=== PATIENT | male | born 1985 | race Two or more races ===

== ENCOUNTER 2022-03-04 22:08 | Inpatient (IN) | payer MEDICAID ==
[~2022-03-04] VITALS: Ht 177.8 cm; Wt 83.9 kg
--- NOTE | 2022-03-04 23:15 | NUR ---
ECONOMICS ANALYST NOTE PATIENT ARRIVED FROM [facility] ER, PT ALERT/ORIENTED X 4, PT ABLE TO MAKE NEEDS KNOWN. PT STABLE ON RA, NO S/S OF DISTRESS OR SOB NOTED, BREATHING EVEN AND UNLABORED. PATIENT DENIES ABDOMINAL PAIN BUT REPORTS HEADACHE. BP ELEVATED 169/201, HR: 75, NOTIFIED CLAY PRESS OPERATOR MD LETICIA MCCORMACK WHO SAW PATIENT AT BEDSIDE. PATIENT REPORTS HX OF HTN BUT STATES HE HASN'T TAKEN BP MEDS AND NEEDS A NEW PRESCRIPTION, PT REPORTS HX OF HOSPITALIZATION THIS YEAR WITH SPLEEN REMOVAL. PATIENT REPORTS HAVING ABOUT 2 DRINKS A WEEK, AND SMOKING MARIJUANA AT NIGHT FOR SLEEP. PATIENT AMBULATORY AND STEADY. IV ACCESS ON LAC #20G INTACT AND SALINE LOCKED. ORIENTED PATIENT TO ROOM AND HOW TO USE CALL LIGHT. SAFETY MEASURES IN PLACE: CALL LIGHT WITHIN REACH, SIDE RAILS UP X 2, BED LOCKED IN LOWEST POSITION. WILL CONTINUE TO MONITOR PATIENT
[2022-03-04] MEDS: hydrALAZINE HCL 25 MG TABLET PO SCH (23:21)
[2022-03-05] MEDS ORDERED: IV NS 0.9% 1,000 ML IV PRN (00:30)
[2022-03-05] MEDS ORDERED: ACETAMINOPHEN 325 MG TABLET PO PRN (00:30)
[2022-03-05] MEDS ORDERED: ONDANSETRON HCL/PF 4 MG/2 ML VIAL IVP PRN (00:30)
[2022-03-05] MEDS: ENOXAPARIN SODIUM 40 MG/0.4 ML DISP.SYRIN SQ SCH ×2 (00:31→21:00)
[2022-03-05] MEDS: MORPHINE SULFATE INJ 2 MG/ML DISP.SYRIN IV PRN ×4 (01:39→23:29)
[2022-03-05 04:00] VITALS: BP 153/106
[2022-03-05 05:00] VITALS: BP 158/102
[2022-03-05] MEDS: hydrALAZINE HCL 25 MG TABLET PO SCH (05:00)
--- NOTE | 2022-03-05 05:51 | NUR ---
VIDEO OPERATOR NOTE PATIENT STILL NOTED WITH HIGH BP 158/102, HR: 70. PATIENT HAS SCHEDULED HYDRALAZINE 25 MG PO BUT PATIENT IS NOW NPO. CONTACTED SUPERVISOR FITTING MD WITH ORDER FOR ENALAPRIL 1.25 MG IVP PRN FOR SBP > 150. ORDER CONFIRMED
[2022-03-05 05:55] LABS: BASOPHILS # (AUTO) 0.1 K/uL (0.0-0.2); BASOPHILS % (AUTO) 0.5 % (0.0-2.0); EOSINOPHILS % (AUTO) 0.6 % (0.0-6.0); HEMATOCRIT 37 % (39-51); HEMOGLOBIN 12.4 g/dL (13.5-17.5); LYMPHOCYTES # (AUTO) 0.9 K/uL (0.8-4.8); LYMPHOCYTES % (AUTO) 6.7 % (20.0-44.0); MEAN CORPUSCULAR HGB CONC 34 g/dl (31.0-36.0); MEAN CORPUSCULAR VOLUME 94 fL (80-96); MONOCYTES # (AUTO) 1.3 K/uL (0.1-1.30); MONOCYTES % (AUTO) 9.6 % (2.0-12.0); NEUTROPHILS # (AUTO) 11.5 K/uL (1.8-8.9); NEUTROPHILS % (AUTO) 82.6 % (43.0-81.0); PLATELET COUNT (AUTO) 506 K/uL (150-450); WHITE BLOOD COUNT (AUTO) 13.9 K/uL (4.3-11.0)
[2022-03-05] MEDS: ENALAPRILAT INJ (1.25 MG/ML) 1.25 MG/ML VIAL IV PRN (06:21)
[2022-03-05 07:12] LABS: BILIRUBIN,DIRECT 0.3 mg/dL (0.0-0.2); BILIRUBIN,TOTAL 0.6 mg/dL (0.2-1.0); CALCIUM, SERUM 8.8 mg/dL (8.5-10.1); CREATININE 1.1 mg/dL (0.6-1.3); MAGNESIUM 1.8 mg/dL (1.8-2.4); PHOSPHORUS 3.1 mg/dL (2.5-4.9); POTASSIUM 3.7 mmol/L (3.5-5.1); TOTAL PROTEIN, SERUM 7.2 g/dL (6.4-8.2)
--- NOTE | 2022-03-05 07:24 | NUR ---
CLINICAL QUALITY MANAGER CLOSING NOTE PATIENT SLEEPING IN BED, EASILY AWAKENED, PT ALERT/ORIENTED X 4, PT ABLE TO MAKE NEEDS KNOWN. PATIENT STABLE ON RA, NO S/S OF DISTRESS OR SOB NOTED, BREATHING EVEN AND UNLABORED. PT ON EXTERNAL GRAVE DIGGER READING SINUS RHYTHM, HR: 76. IV ACCESS ON LAC #20G INTACT AND INFUSING NS @ 75 ML/HR. MEDICATIONS GIVEN ORDERED, PT NEEDS MET THROUGHOUT SHIFT. PATIENT KEPT NPO SINCE MIDNIGHT. SAFETY MEASURES IN PLACE: CALL LIGHT WITHIN REACH, SIDE RAILS UP X 2, BED LOCKED IN LOWEST POSITION. ENDORSED TO DAYSHIFT NURSE FOR CONTINUITY OF CARE
--- NOTE | 2022-03-05 07:30 | NUR ---
RN Receiving Report. Patient AOx4, able to express his own concerns. States he has abdominal pain, will assess and administer medication as prescribed. Introduced myself to patient and discussed plan of care, pt verbalized understanding. All safety precautions taken, call light and table within reach, bed at lowest position.
[2022-03-05 07:45] LABS: ALBUMIN 2.2 g/dL (3.4-5.0)
[2022-03-05 08:00] VITALS: BP 157/106
[2022-03-05] MEDS ORDERED: AMLODIPINE (08:25)
[2022-03-05] MEDS ORDERED: [UNRECOGNIZED DRUG - OTHER] (08:25)
[2022-03-05] MEDS: PANTOPRAZOLE 40 MG VIAL IV SCH (08:54)
[2022-03-05] MEDS: METRONIDAZOLE 500MG/ NS 100ML 500 MG in PREMIX 1 EA IV SCH ×3 (08:54→16:24)
[2022-03-05] MEDS ORDERED: AMLODIPINE BESYLATE 5 MG TABLET PO SCH (11:00)
[2022-03-05] MEDS: LEVOFLOXACIN 750 MG /D5W 150ML 750 MG in PREMIX 1 EA IV SCH (11:15)
[2022-03-05 12:00] VITALS: BP 149/98
[2022-03-05 17:53] VITALS: BP 144/99
[2022-03-05] MEDS ORDERED: hydrALAZINE HCL IV 20 MG VIAL IV PRN ×3 (18:30→21:00)
--- NOTE | 2022-03-05 18:31 | NUR ---
RN Closing Note Patient AOx4, able to express his own concerns. State he is missing work siddiqi to current situation. Administered IV medication as ordered, IV with no signs of infiltration. Administered medications as prescribed, provided care as needed. All safety precautions taken, call light and table within reach. Will endorse to night nurse for continuity of care.
--- NOTE | 2022-03-05 19:25 | NUR ---
NURSING UNIT CLERK OPENING NOTE RECEIVED PATIENT IN BED; AWAKE, ALERT AND ORIENTED X 4. BREATHING EVEN AND NONLABORED. ON ROOM AIR; TOLERATING WELL. NOT IN ANY FORM OF RESPIRATORY DISTRESS. ON TELEMETRY MONITORING: SINUS RHYTHM HR-88 BPM. WITH IV ACCESS ON LEFT HAND 20g: PATENT AND INTACT INFUSING WITH NS 1L RUNNING @ 75 ML/HR; FLUSHES WELL. ABLE TO MAKE NEEDS KNOWN. SAFETY MEASURES IMPLEMENTED: CALL LIGHT AND TABLE WITHIN REACH, SIDE RAILS UP X 2, BED IN LOWEST LOCKED POSITION. WILL CONTINUE PLAN OF CARE.
[2022-03-05 20:00] VITALS: BP 146/97
--- NOTE | 2022-03-05 23:29 | NUR ---
RN NOTE PATIENT C/O ABDOMINAL PAIN 8/10 PAIN SCALE. PRN MORPHINE 2 MG GIVEN IVP ORDERED. WILL CONTINUE TO MONITOR AND REASSESS PT
[2022-03-06] VITALS: BP 148/100
[2022-03-06 04:00] VITALS: BP_SYST 142; BP_SYST 148; BP_DIAS 99
[2022-03-06] MEDS: MORPHINE SULFATE INJ 2 MG/ML DISP.SYRIN IV PRN ×2 (06:15→10:58)
--- NOTE | 2022-03-06 06:15 | NUR ---
RN NOTE PATIENT C/O ABDOMINAL PAIN 8/10 PAIN SCALE. PRN MORPHINE 2 MG GIVEN IVP ORDERED. WILL CONTINUE TO MONITOR AND REASSESS PT.
--- NOTE | 2022-03-06 06:45 | NUR ---
FRONT WINDOW CASHIER CLOSING NOTE PATIENT IN BED; AWAKE, A/O X 4. STABLE ON ROOM AIR. BREATHING EQUAL AND UNLABORED. IN NO ACUTE DISTRESS. ON TELE MONITORING: SINUS RHYTHM HR-77 BPM. WITH IV ACCESS ON LEFT HAND 20g: PATENT AND INTACT INFUSING WITH NS 1L RUNNING @ 75 ML/HR; FLUSHES WELL. ALL NEEDS ATTENDED. ALL DUE MEDS GIVEN ORDERED. SAFETY MEASURES MAINTAINED: CALL LIGHT AND TABLE WITHIN REACH, SIDE RAILS UP X 2, BED IN LOWEST LOCKED POSITION. ENDORSED TO MORNING SHIFT FOR ANGEL.
[2022-03-06 07:00] VITALS: BP 154/95
[2022-03-06 07:19] LABS: BILIRUBIN,DIRECT 0.2 mg/dL (0.0-0.2); BILIRUBIN,TOTAL 0.4 mg/dL (0.2-1.0); PHOSPHORUS 3.8 mg/dL (2.5-4.9); TOTAL PROTEIN, SERUM 7.8 g/dL (6.4-8.2)
[2022-03-06 07:22] LABS: CALCIUM, SERUM 9.5 mg/dL (8.5-10.1); PHOSPHORUS 3.9 mg/dL (2.5-4.9); POTASSIUM 3.8 mmol/L (3.5-5.1)
--- NOTE | 2022-03-06 07:25 | NUR ---
STUDIO ASSOCIATE OPENING NOTE RECEIVED PATIENT IN BED; AWAKE, ALERT AND ORIENTED X 4. NO SOB OR DISTRESS NOTED . ON ROOM AIR; TOLERATING WELL. NO C/O OF PAIN AND DISCOMFORT . ON TELEMETRY MONITORING: SINUS RHYTHM HR-88 BPM. WITH IV ACCESS ON LEFT HAND 20g: PATENT AND INTACT INFUSING WITH NS 1L RUNNING @ 75 ML/HR; FLUSHES WELL. ON NPO AT THIS TIME FOR CT GUIDED DRAINAGE OF ABSCESS , ABLE TO MAKE NEEDS KNOWN. SAFETY MEASURES IMPLEMENTED: CALL LIGHT AND TABLE WITHIN REACH, SIDE RAILS UP X 2, BED IN LOWEST LOCKED POSITION. WILL CONTINUE PLAN OF CARE.
[2022-03-06 07:45] LABS: BASOPHILS # (AUTO) 0.1 K/uL (0.0-0.2); EOSINOPHILS % (AUTO) 1.1 % (0.0-6.0); HEMATOCRIT 41 % (39-51); LYMPHOCYTES # (AUTO) 1.6 K/uL (0.8-4.8); LYMPHOCYTES % (AUTO) 12.4 % (20.0-44.0); MEAN CORPUSCULAR HGB CONC 34 g/dl (31.0-36.0); MEAN CORPUSCULAR VOLUME 94 fL (80-96); MONOCYTES % (AUTO) 15.1 % (2.0-12.0); NEUTROPHILS # (AUTO) 9.3 K/uL (1.8-8.9); NEUTROPHILS % (AUTO) 70.4 % (43.0-81.0); PLATELET COUNT (AUTO) 600 K/uL (150-450); RED BLOOD CELL COUNT(AUTO) 4.34 MIL/uL (4.5-6.0); WHITE BLOOD COUNT (AUTO) 13.2 K/uL (4.3-11.0)
[2022-03-06 08:13] LABS: ALBUMIN 2.4 g/dL (3.4-5.0)
[2022-03-06] MEDS: AMLODIPINE BESYLATE 5 MG TABLET PO SCH (09:00)
--- NOTE | 2022-03-06 10:00 | NUR ---
RN NOTES FOLLOW UP RADIOLOGY REGARDING THE PROCEDURE TO BE DONE AND THEY SAID NEED TO HAVE COAGULATION BEFORE DOING THE PROCEDURE
[2022-03-06] MEDS: PANTOPRAZOLE 40 MG VIAL IV SCH (10:17)
[2022-03-06] MEDS: METRONIDAZOLE 500MG/ NS 100ML 500 MG in PREMIX 1 EA IV SCH ×3 (10:20→17:07)
[2022-03-06] MEDS: LEVOFLOXACIN 750 MG /D5W 150ML 750 MG in PREMIX 1 EA IV SCH (10:35)
[2022-03-06 12:00] VITALS: BP 149/94
[2022-03-06] MEDS: IV D5/ 0.9% NACL 1,000 ML IV PRN (13:44)
[2022-03-06 14:18] LABS: BAND % (MANUAL) 6 % (0.0-5.0); EOSINOPHILS % (MANUAL) 1 % (0-4); LYMPHOCYTES % (MANUAL) 13 % (16-48); MONOCYTES % (MANUAL) 18 % (0-11.0); NEUTROPHILS % (MANUAL) 62 (42-76)
--- NOTE | 2022-03-06 15:07 | NUR ---
MICHELLE HAD NO COAGS THIS AM , AND PLAVIX WAS GIVEN A 0325
[2022-03-06 16:00] VITALS: BP 152/101
--- NOTE | 2022-03-06 19:20 | NUR ---
FIRE EXTINGUISHER REPAIRER CLOSING NOTE PATIENT IN BED; AWAKE, ALERT AND ORIENTED X 4. NO SOB OR DISTRESS NOTED . ON ROOM AIR; TOLERATING WELL. C/O OF PAIN AND DISCOMFORT AND IV MORPHINE WAS GIVEN ORDERED AND WITH HELP , . ON TELEMETRY MONITORING: SINUS TACH ST 114 BPM. WITH IV ACCESS ON LEFT HAND 20g: PATENT AND INTACT INFUSING WITH D5 NS 1L RUNNING @ 75 ML/HR; FLUSHES WELL. ALL DUE ATB GIVEN ORDERED , NPO STATUS TODAY WAS CANCELLED AND PATIENT WITH ORDER OF CLEAR LIQUID DIET AND ON NPO ON 03/[address] GUIDED DRAINAGE OF ABSCESS , ABLE TO MAKE NEEDS KNOWN. SAFETY MEASURES IMPLEMENTED: CALL LIGHT AND TABLE WITHIN REACH, SIDE RAILS UP X 2, BED IN LOWEST LOCKED POSITION. ENDORSED TO NEXT SHIFT .
--- NOTE | 2022-03-06 19:30 | NUR ---
madina rn opening received patient walking around the hallway and is talking on the phone .patient is a/ox4. no s/s of apparent distress on room air. denies pain at this time. patient walking around with his IV pole running D5NS @75mls/hr. will continue with patient's plan of care.
[2022-03-06 20:00] VITALS: BP 145/98
[2022-03-06] MEDS: ENOXAPARIN SODIUM 40 MG/0.4 ML DISP.SYRIN SQ SCH (21:00)
[2022-03-06] MEDS ORDERED: ZOLPIDEM TARTRATE 5 MG TABLET PO ONE (22:00)
[2022-03-07] MEDS: MORPHINE SULFATE INJ 2 MG/ML DISP.SYRIN IV PRN ×3 (03:36→23:39)
[2022-03-07 04:00] VITALS: BP 153/102
[2022-03-07] MEDS: IV D5/ 0.9% NACL 1,000 ML IV PRN (06:29)
[2022-03-07 06:58] LABS: BASOPHILS # (AUTO) 0.1 K/uL (0.0-0.2); BASOPHILS % (AUTO) 1.2 % (0.0-2.0); HEMATOCRIT 41 % (39-51); HEMOGLOBIN 13.6 g/dL (13.5-17.5); LYMPHOCYTES # (AUTO) 1.1 K/uL (0.8-4.8); LYMPHOCYTES % (AUTO) 11.5 % (20.0-44.0); MEAN CORPUSCULAR HGB CONC 34 g/dl (31.0-36.0); MEAN CORPUSCULAR VOLUME 94 fL (80-96); MONOCYTES # (AUTO) 1.3 K/uL (0.1-1.30); MONOCYTES % (AUTO) 13.3 % (2.0-12.0); NEUTROPHILS # (AUTO) 6.8 K/uL (1.8-8.9); PLATELET COUNT (AUTO) 630 K/uL (150-450); RED BLOOD CELL COUNT(AUTO) 4.29 MIL/uL (4.5-6.0); WHITE BLOOD COUNT (AUTO) 9.4 K/uL (4.3-11.0)
--- NOTE | 2022-03-07 07:41 | NUR ---
noc rn closing note report given to anson Linares for continuity of patient care. patient has been npo since midnight. consent signed.
--- NOTE | 2022-03-07 07:46 | NUR ---
RN OPENING NOTES PATIENT AWAKE IN BED RESTING, A/O X 4. NO S/S OF PAIN NOTED AT THIS TIME. ON ROOM AIR, NO DISTRESS OR SHORTNESS OF BREATH NOTED. IV ACCESS L HAND #20G, INTACT, PATENT, FLUSHING WELL. PATIENT WITH EXTERNAL EMBEDDED ENGINEER WITH CURRENT READING OF SB WITH ST DEPRESSION HR OF 58, NO CARDIAC DISTRESS NOTED AT THIS TIME. FALL AND SAFETY MEASURES IN PLACE, BED ALARM ON, BED IN LOW LOCK POSITION, CALL LIGHT AND TABLE WITHIN EASY REACH, SIDE RAILS UP X2. WILL CONTINUE TO MONITOR.
[2022-03-07 08:00] VITALS: BP 152/100
[2022-03-07 08:05] LABS: BILIRUBIN,DIRECT 0.2 mg/dL (0.0-0.2); BILIRUBIN,TOTAL 0.3 mg/dL (0.2-1.0); CALCIUM, SERUM 9.3 mg/dL (8.5-10.1); CREATININE 1.2 mg/dL (0.6-1.3); MAGNESIUM 2.2 mg/dL (1.8-2.4); PHOSPHORUS 3.5 mg/dL (2.5-4.9); POTASSIUM 3.7 mmol/L (3.5-5.1); TOTAL PROTEIN, SERUM 7.5 g/dL (6.4-8.2)
[2022-03-07] MEDS: PANTOPRAZOLE 40 MG VIAL IV SCH (08:05)
[2022-03-07] MEDS: METRONIDAZOLE 500MG/ NS 100ML 500 MG in PREMIX 1 EA IV SCH ×3 (08:05→16:35)
[2022-03-07 08:29] LABS: ALBUMIN 2.3 g/dL (3.4-5.0)
[2022-03-07] MEDS: AMLODIPINE BESYLATE 5 MG TABLET PO SCH ×2 (09:49→10:08)
[2022-03-07] MEDS: LEVOFLOXACIN 750 MG /D5W 150ML 750 MG in PREMIX 1 EA IV SCH (10:08)
[2022-03-07 12:00] VITALS: BP 154/114
[2022-03-07 16:00] VITALS: BP_SYST 120; BP_SYST 147; BP_DIAS 108; BP_DIAS 80
--- NOTE | 2022-03-07 16:00 | NUR ---
RN NOTE RADIOLOGY SAID THAT THE CT GUIDE ABSCESS DRAINAGE WILL NOT BE ABLE TO BE DONE UNTIL WEDNESDAY. PATIENT IS VERY UPSET BECAUSE PROCEDURE WAS NOT DONE TODAY SINCE HE IS WAITING SINCE WEDNESDAY TO BE DONE. PATIENT ASKED IF HE CAN GO TO ANOTHER HOSPITAL. DR. MCGARRY WAS INFORMED AND DOCTOR SAID TO INFORMED DOCTOR MARISOL GOMEZ THAT PATIENT CAN GO HOME WITH PO ANTIBIOTICS. DOCTOR MARISOL GOMEZ SPOKE WITH PATIENT VIA PHONE AND PATIENT STATED THAT HE WANTED TO WAIT TO WEDNESDAY INSTEAD TO GET THE PROCEDURE DONE, HE WOULD LIKE REGULAR FOOD AND NO LOVENOX. DOCTOR MARISOL GOMEZ ORDER VIA PHONE REGULAR DIET AND D/C OF LOVENOX, ORDER WERE PLACED. CHARGE NURSE AWARE.
--- NOTE | 2022-03-07 18:37 | NUR ---
RN CLOSING NOTES PATIENT AWAKE IN BED RESTING, A/O X 4. NO S/S OF PAIN NOTED AT THIS TIME. ON ROOM AIR, NO DISTRESS OR SHORTNESS OF BREATH NOTED. IV ACCESS L HAND #20G, INTACT, PATENT, FLUSHING WELL. PATIENT WITH EXTERNAL SOFTWARE PACKAGER WITH CURRENT READING OF SR AND HR OF 99, NO CARDIAC DISTRESS NOTED AT THIS TIME. SCHEDULE MEDICATIONS ADMINISTERED. FALL AND SAFETY MEASURES IN PLACE, BED ALARM ON, BED IN LOW LOCK POSITION, CALL LIGHT AND TABLE WITHIN EASY REACH, SIDE RAILS UP X2. WILL ENDORSE TO THREADING MACHINE FEEDER AUTOMATIC.
--- NOTE | 2022-03-07 19:37 | NUR ---
RN OPENING NOTES RECIEVED PATIENT AWAKE IN BED RESTING, A/O X 4.ON ROOM AIR EVELIO WELL,NO SOB/DISTRESS NOTED.BREATHING EVEN AND UNLABORED, IV ACCESS L HAND #20G, INTACT, PATENT, FLUSHING WELL.SAFETY MEASURES IN PLACE, BED ALARM ON, BED IN LOW LOCK POSITION, CALL LIGHT AND TABLE WITHIN EASY REACH, SIDE RAILS UP X2. WILL CONTINUE TO MONITOR.
[2022-03-07 20:00] VITALS: BP 133/89
--- NOTE | 2022-03-07 23:39 | NUR ---
RN NOTES; PT COMPLAINED OF ABDOMINAL PAIN 01/10,PRN MORPHINE 2MG/ML WAS GIVEN.NO SIGN A/R NOTED.
[2022-03-08] VITALS: BP 153/103
[2022-03-08 04:00] VITALS: BP 145/91
--- NOTE | 2022-03-08 06:22 | NUR ---
RN CLOSING NOTES; PATIENT AWAKE IN BED RESTING, A/O X 4.ON ROOM AIR EVELIO WELL,NO SOB/DISTRESS NOTED.BREATHING EVEN AND UNLABORED,ALL NEEDS ATTENDED,DUE MEDS GIVEN ORDER, IV ACCESS L HAND #20G, INTACT, PATENT, FLUSHING WELL.SAFETY MEASURES IN PLACE, BED ALARM ON, BED IN LOW LOCK POSITION, CALL LIGHT AND TABLE WITHIN EASY REACH, SIDE RAILS UP X2. WILL ENDORSED TO NEXT SHIFT.
--- NOTE | 2022-03-08 07:37 | NUR ---
RN OPENING NOTES PATIENT AWAKE IN BED RESTING, A/O X 4. NO S/S OF PAIN NOTED AT THIS TIME. ON ROOM AIR, NO DISTRESS OR SHORTNESS OF BREATH NOTED. IV ACCESS L HAND #20G, INTACT, PATENT, FLUSHING WELL. PATIENT WITH EXTERNAL FEDERAL AIR MARSHAL WITH CURRENT READING OF SR WITH HR OF 70, NO CARDIAC DISTRESS NOTED AT THIS TIME. FALL AND SAFETY MEASURES IN PLACE, BED ALARM ON, BED IN LOW LOCK POSITION, CALL LIGHT AND TABLE WITHIN EASY REACH, SIDE RAILS UP X2. WILL CONTINUE TO MONITOR.
[2022-03-08] MEDS: PANTOPRAZOLE 40 MG VIAL IV SCH (09:17)
[2022-03-08] MEDS: METRONIDAZOLE 500MG/ NS 100ML 500 MG in PREMIX 1 EA IV SCH (09:17)
[2022-03-08] MEDS: ENALAPRILAT INJ (1.25 MG/ML) 1.25 MG/ML VIAL IV PRN (09:22)
[2022-03-08] MEDS: LEVOFLOXACIN 750 MG /D5W 150ML 750 MG in PREMIX 1 EA IV SCH (10:47)
[2022-03-08] MEDS: METRONIDAZOLE 500 MG TABLET PO SCH ×2 (13:05→20:22)
[2022-03-08] MEDS: IV D5/ 0.9% NACL 1,000 ML IV PRN (13:06)
--- NOTE | 2022-03-08 18:35 | NUR ---
RN CLOSING NOTES PATIENT AWAKE IN BED RESTING, A/O X 4. NO S/S OF PAIN NOTED AT THIS TIME. ON ROOM AIR, NO DISTRESS OR SHORTNESS OF BREATH NOTED. IV ACCESS L HAND #20G, INTACT, PATENT, FLUSHING WELL. PATIENT WITH EXTERNAL DIRECTOR OF GUIDANCE WITH CURRENT READING OF SR AND HR OF 99, NO CARDIAC DISTRESS NOTED AT THIS TIME. SCHEDULE MEDICATIONS ADMINISTERED. FALL AND SAFETY MEASURES IN PLACE, BED ALARM ON, BED IN LOW LOCK POSITION, CALL LIGHT AND TABLE WITHIN EASY REACH, SIDE RAILS UP X2. WILL ENDORSE TO ORACLE HRMS DEVELOPER.
[2022-03-08 20:00] VITALS: BP 149/97
[2022-03-09] VITALS: BP 142/46
[2022-03-09 04:00] VITALS: BP 147/83
[2022-03-09] MEDS: METRONIDAZOLE 500 MG TABLET PO SCH (04:26)
--- NOTE | 2022-03-09 07:42 | NUR ---
RN OPENING NOTE- PT ASLEEP, EASILY AWAKENED, A/O X 4.. DENIES PAIN, BS POSITIVE ON AUSCULTATION, ACTIVE, NO DISTENSION, NO RIGIDITY OR GUARDING,, IV ACCESS L HAND #20G, . SAFETY MEASURES IN PLACE, BED ALARM ON, BED IN LOW LOCK POSITION, CALL LIGHT AND TABLE WITHIN EASY REACH, SIDE RAILS UP , MONITOR / ASSIST
[2022-03-09 08:00] VITALS: BP 135/95
[2022-03-09] MEDS ORDERED: PANT40TA49 PO (08:40)
[2022-03-09] MEDS ORDERED: LEVO250T59 PO (08:40)
[2022-03-09] MEDS ORDERED: AMLO-212 PO (08:40)
[2022-03-09] MEDS ORDERED: METR500T PO (08:40)
[2022-03-09 08:48] VITALS: BP 135/95
[2022-03-09] MEDS: AMLODIPINE BESYLATE 5 MG TABLET PO SCH (08:48)
[2022-03-09] MEDS ORDERED: PANTOPRAZOLE 40 MG TABLET.DR PO SCH (09:00)
[2022-03-09] MEDS ORDERED: CT SWABBABLE VALVE TRANS SET 1 EA INFUS.SET MC ONE (09:22)
[2022-03-09] MEDS ORDERED: IV NS 0.9% 250 ML IV ONE (09:22)
[2022-03-09] MEDS ORDERED: IOHEXOL-300 100 ML VIAL IV ONE (09:22)
[2022-03-09] MEDS ORDERED: LEVOFLOXACIN (250MG) 250 MG TABLET PO SCH (10:00)
--- NOTE | 2022-03-09 13:31 | NUR ---
RN NOTE / DISCHARGE - PT DC AT THIS TIME INTO CARE OF FAMILY. F/U CT ABDOMEN IN FOUR WEEKS. RESOURCES GIVEN. ID [id number] AND IV REMOVED. DC INSTRUCTIONS REVIEWED AND UNDERSTOOD. ESCORTED OFF UNIT BY THIS RN
== END 2022-03-09 13:35 | disposition home or self-care (01) | DRG 720 ==
LOC: TELE 22:08
PROVIDERS: ADMIT Nurse Practitioner Acute Care; ATTEND Internal Medicine
DX: A41.9 Sepsis, unspecified organism (principal); K57.20 Diverticulitis of large intestine with perforation and abscess without bleeding; K76.1 Chronic passive congestion of liver; Z20.822 Contact with and (suspected) exposure to COVID-19; Z91.199 Patient's noncompliance with other medical treatment and regimen due to unspecified reason; R74.01 Elevation of levels of liver transaminase levels; N30.80 Other cystitis without hematuria; I10 Essential (primary) hypertension; D75.839 Thrombocytosis, unspecified; Z87.19 Personal history of other diseases of the digestive system
CPT/HCPCS: 36415; 80048-TC; 80061-TC; 80076-TC; 83690-TC; 83735-TC; 84100-TC; 85025-TC; 85610-TC; 85730-TC; 87081-TC; A4216; C9113; G0378; J0360; J1650; J1956; J2270; J2405; J3490; J7030; J7042; J7050; Q9967